=== PATIENT | male | born 1995 | race Caucasian/White ===

== ENCOUNTER 2018-11-09 19:39 | Emergency (ER) | payer OTHER ==
[~2018-11-09] VITALS: Ht 177.8 cm; Wt 81.8 kg
[2018-11-09] MEDS ORDERED: CYCL10TA PO (21:42)
[2018-11-09] MEDS ORDERED: KETO10TAB PO (21:42)
[2018-11-09] MEDS ORDERED: KETOROLAC 60 MG/2 ML VIAL (J1885) IM ONE (21:45)
[2018-11-09] MEDS ORDERED: CYCLOBENZAPRINE 10 MG TAB PO ONE (21:45)
[2018-11-09 22:19] VITALS: BP 123/72
== END 2018-11-09 22:21 | disposition home or self-care (01) ==
LOC: M ED 19:39
DX: S39.012A Strain of muscle, fascia and tendon of lower back, initial encounter (principal); X50.0XXA Overexertion from strenuous movement or load, initial encounter; Y92.9 Unspecified place or not applicable; Y93.9 Activity, unspecified; Y99.9 Unspecified external cause status; Z87.828 Personal history of other (healed) physical injury and trauma; Z88.1 Allergy status to other antibiotic agents
CPT/HCPCS: 96372; 99283; J1885